=== PATIENT | male | born 2000 | race Caucasian/White ===

== ENCOUNTER 2023-06-21 04:05 | Emergency (ER) | payer OTHER, SELFPAY ==
[2023-06-21] MEDS ORDERED: Iopamidol 300 61% 100 ML VIAL FS ONE (09:33)
== END 2023-06-21 04:13 ==
LOC: CSHERS 04:05
DX: F10.129 Alcohol abuse with intoxication, unspecified (principal); V89.2XXA Person injured in unspecified motor-vehicle accident, traffic, initial encounter
CPT/HCPCS: 71260; 74177; Q9967